=== PATIENT | female | born 1970 | race Caucasian/White ===

== ENCOUNTER → 2024-01-10 13:18 | Outpatient (BNVA) | payer BC, SELFPAY | PROVIDERS: PCP Family Medicine; Visit Provider Family Medicine | DX: Z13.220 Encounter for screening for lipoid disorders (principal); Z51.81 Encounter for therapeutic drug level monitoring; E55.9 Vitamin D deficiency, unspecified | CPT/HCPCS: 80053; 80061; 82306; 84443; 85025 ==

== ENCOUNTER 2024-01-12 12:41 | Outpatient (CLI) | payer BC, SELFPAY ==
--- NOTE | 2024-01-12 12:47 | XR_ITS ---
WS: [id number] Examination: XR hip RT 2-3V wo/w pel* [id number] Reason for Exam: Right hip pain Date: January 12, 2024 Comparison: None. Findings: The bone density is maintained. There is no destruction There is no displaced fracture or dislocation. The joint space is maintained. XR/XR hip RT 2-3V wo/w pel* [id number] Impression: No acute bony abnormality of the right hip is identified.
== END 2024-01-12 12:42 | disposition home or self-care (01) ==
LOC: RAD 12:42
PROVIDERS: PCP Family Medicine; Visit Provider Family Medicine
DX: M25.551 Pain in right hip (principal)
CPT/HCPCS: 73502

== ENCOUNTER 2025-03-11 15:06 | Outpatient (CLI) | payer BC, SELFPAY ==
--- NOTE | 2025-03-11 15:12 | XR_ITS ---
WS: [id number] XR foot LT min 3V* [id number] REASON FOR EXAM: Left foot/medial ankle pain FINDINGS: No fracture or focal bone lesion. Sesamoids intact. Joint spaces of the forefoot, midfoot, and hindfoot are intact and relatively well preserved. Small to moderate anterior calcaneal enthesophyte. On the lateral view there appears to be increased soft tissue density underlying the metatarsals, nonspecific. No radiopaque foreign body or gas is identified. XR/XR foot LT min 3V* [id number] IMPRESSION: No specific soft tissue finding as above. No significant bone or joint abnormality.
== END 2025-03-11 15:07 | disposition home or self-care (01) ==
LOC: RAD 15:08
PROVIDERS: PCP Family Medicine; Visit Provider Family Medicine
DX: M79.672 Pain in left foot (principal); M77.32 Calcaneal spur, left foot
CPT/HCPCS: 73630